=== PATIENT | female | born 1975 | race Caucasian/White ===

== ENCOUNTER 2019-11-26 05:28 | Inpatient (IN) | payer BC ==
[2019-11-26] MEDS ORDERED: Acetaminophen 500 MG Tab PO ONE (05:30)
[2019-11-26] MEDS ORDERED: Scopolamine 1.5 MG Transdermal Patch TOP SCH (05:30)
[2019-11-26] MEDS ORDERED: Gabapentin 300 MG Cap PO ONE (05:30)
[2019-11-26] MEDS ORDERED: Celecoxib 200 MG Cap PO ONE (05:30)
[2019-11-26] MEDS ORDERED: Dextrose 5%-Lactated Ringers 1,000 ML IV SCH (06:00)
[2019-11-26] MEDS ORDERED: cefOXitin 2 GM Vial ONE (06:34)
[2019-11-26] MEDS ORDERED: cefOXitin 2 GM in Sodium Chloride 0.9% 50 ML IV ONE (07:00)
[2019-11-26] MEDS ORDERED: Rocuronium 50 MG/5 ML Vial ONE (07:07)
[2019-11-26] MEDS ORDERED: Neostigmine Methylsulfate 1 MG/ML 5 ML Syringe ONE (07:07)
[2019-11-26] MEDS ORDERED: Glycopyrrolate 0.2 MG/ML 5 ML MDV ONE (07:07)
[2019-11-26] MEDS ORDERED: Ondansetron 4 MG/2 ML SDV ONE (07:07)
[2019-11-26] MEDS ORDERED: Succinylcholine 200 MG/10 ML MDV ONE (07:07)
[2019-11-26] MEDS ORDERED: Propofol 200 MG/20 ML SDV ONE (07:07)
[2019-11-26] MEDS ORDERED: fentaNYL 250 MCG/5 ML SDV ONE ×2 (07:07→08:16)
[2019-11-26] MEDS ORDERED: Dexamethasone 4 MG/ML SDV ONE (07:07)
[2019-11-26] MEDS ORDERED: Ketamine 500 MG/5 ML MDV IV SCH (07:30)
[2019-11-26] MEDS ORDERED: Magnesium Sulfate 3.8 GM in Sodium Chloride 0.9% 100 ML IV SCH (07:30)
[2019-11-26] MEDS ORDERED: Ketamine 50 MG in Sodium Chloride 0.9% 49.5 ML IV SCH (07:30)
[2019-11-26] MEDS ORDERED: Lactated Ringers 1,000 ML ONE (08:13)
[2019-11-26] MEDS ORDERED: hydrOXYzine HCL 100 MG/2 ML SDV IM ONE (09:08)
[2019-11-26] MEDS ORDERED: Labetalol 20 MG/4 ML Syringe IV ONE (09:15)
[2019-11-26] MEDS ORDERED: Cyclobenzaprine 10 MG Tab PO PRN (10:18)
[2019-11-26] MEDS ORDERED: Acetaminophen 500 MG Tab PO PRN (10:18)
[2019-11-26] MEDS ORDERED: diphenhydrAMINE 50 MG/ML SDV IVPUSH PRN (10:18)
[2019-11-26] MEDS ORDERED: HYDROmorphone 0.5 MG/0.5 ML Syringe IVPUSH PRN (10:18)
[2019-11-26] MEDS ORDERED: Metoclopramide 10 MG/2 ML SDV IVPUSH PRN (10:18)
[2019-11-26] MEDS ORDERED: Labetalol 20 MG/4 ML Syringe IVPUSH PRN (10:18)
[2019-11-26] MEDS ORDERED: Calcium Gluconate 10% 1 GM/10 ML SDV IVPUSH PRN (10:18)
[2019-11-26] MEDS ORDERED: hydrOXYzine HCL 100 MG/2 ML SDV IM PRN (10:18)
[2019-11-26] MEDS ORDERED: oxyCODONE 5 MG Tab PO PRN (10:18)
[2019-11-26] MEDS: HYDROmorphone 1 MG/ML Syringe IV PRN ×2 (11:08→20:17)
[2019-11-26] MEDS: Ondansetron 4 MG/2 ML SDV IVPUSH PRN ×2 (13:06→20:31)
[2019-11-26] MEDS: Gabapentin 250 MG/5 ML Solution ML 470 ML Bottle PO SCH ×2 (13:08→20:19)
[2019-11-26] MEDS: Acetaminophen 500 MG Tab PO SCH ×2 (13:08→22:40)
[2019-11-26] MEDS: cefOXitin 2 GM in Sodium Chloride 0.9% 50 ML IV SCH ×2 (13:08→20:20)
[2019-11-26] MEDS: Levothyroxine 100 MCG Tab PO SCH (13:15)
[2019-11-26] MEDS: valACYclovir 1,000 MG Tab PO SCH (13:31)
[2019-11-26] MEDS ORDERED: Pantoprazole 40 MG Vial IVPUSH SCH (14:00)
[2019-11-26] MEDS ORDERED: FLUoxetine 20 MG Cap PO SCH ×2 (14:00→21:00)
[2019-11-26] MEDS: MVI, Adult with Vitamin K 10 ML, Thiamine 200 MG, Chromium/Copper/Mang/Selen/Zn 1 ML in... IV SCH ×8 (14:14→16:02)
[2019-11-26] MEDS: Heparin Sodium 5,000 Units/ML Vial SUBCUT SCH (16:03)
[2019-11-26] MEDS ORDERED: FLUoxetine 10 MG Cap PO ONE (21:23)
[2019-11-26] MEDS: Dextrose 5%-Lactated Ringers 1,000 ML IV SCH (22:41)
[2019-11-26] MEDS: Melatonin 3 MG Tab PO PRN (22:41)
[2019-11-27] MEDS: cefOXitin 2 GM in Sodium Chloride 0.9% 50 ML IV SCH (02:11)
[2019-11-27] MEDS: Heparin Sodium 5,000 Units/ML Vial SUBCUT SCH ×2 (03:07→16:47)
[2019-11-27] MEDS ORDERED: Iopamidol 612 MG/ML 50 ML SDV PO ONE (04:27)
[2019-11-27] MEDS: Dextrose 5%-Lactated Ringers 1,000 ML IV SCH (04:50)
--- NOTE | 2019-11-27 05:11 | CRLCR ---
Indication: Post bariatric surgery Technique: Two views of the abdomen performed following the administration of oral contrast Comparison: None available Findings/Impression : Contrast opacifies the distal esophagus and gastric pouch, and traverses the gastrojejunostomy to opacify left abdominal jejunal segments. No gross extravasation seen. A left upper quadrant surgical drain in place. Unremarkable osseous structures. Dictated by Boaz Camargo MD @ 11/27/2019 5:09:18 AM Dictated by: Boaz Camargo MD @ 11/27/2019 05:09:24 (Electronically Signed)
[2019-11-27] MEDS ORDERED: Dextrose 5%-Lactated Ringers 1,000 ML IV SCH (08:15)
[2019-11-27] MEDS: Acetaminophen 500 MG Tab PO SCH ×3 (08:53→21:56)
[2019-11-27] MEDS: HYDROmorphone 2 MG Tab PO PRN ×3 (08:53→22:00)
[2019-11-27] MEDS: Levothyroxine 100 MCG Tab PO SCH (08:54)
[2019-11-27] MEDS: Celecoxib 200 MG Cap PO SCH ×2 (08:54→20:33)
[2019-11-27] MEDS: valACYclovir 1,000 MG Tab PO SCH (08:54)
[2019-11-27] MEDS: Gabapentin 250 MG/5 ML Solution ML 470 ML Bottle PO SCH ×3 (08:54→20:37)
[2019-11-27] MEDS: SCOPOLAMINE PATCH CHECK TOP SCH (11:41)
[2019-11-27] MEDS ORDERED: MVI, Adult with Vitamin K 10 ML, Thiamine 200 MG, Chromium/Copper/Mang/Selen/Zn 1 ML in... IV SCH ×4 (16:00)
[2019-11-27] MEDS ORDERED: Pantoprazole 40 MG Tab.CR PO SCH (17:00)
[2019-11-27] MEDS ORDERED: FLUoxetine 20 MG Cap PO SCH (21:00)
[2019-11-27] MEDS: Melatonin 3 MG Tab PO PRN (22:00)
[2019-11-28] MEDS: Heparin Sodium 5,000 Units/ML Vial SUBCUT SCH (05:17)
[2019-11-28] MEDS: Acetaminophen 500 MG Tab PO SCH (05:51)
[2019-11-28] MEDS: Celecoxib 200 MG Cap PO SCH (08:53)
[2019-11-28] MEDS: Gabapentin 250 MG/5 ML Solution ML 470 ML Bottle PO SCH (08:53)
[2019-11-28] MEDS: Levothyroxine 100 MCG Tab PO SCH (08:53)
[2019-11-28] MEDS ORDERED: Cyanocobalamin (Vitamin B12) 1,000 MCG/ML SDV IM ONE (09:00)
[2019-11-28] MEDS: SCOPOLAMINE PATCH CHECK TOP SCH (11:57)
[2019-11-28] MEDS: valACYclovir 1,000 MG Tab PO SCH (11:57)
--- NOTE | 2019-12-01 12:46 | DISCH ---
FINAL DIAGNOSES: 1. Morbid obesity. 2. Marked hepatomegaly. 3. Paraesophageal diaphragmatic hernia associated with mediastinal lipoma. 4. Small peritoneal nodule on the surface of the gastric antrum. SECONDARY DIAGNOSES: 1. History of irritable bowel syndrome. 2. Treated hypothyroidism. 3. History of anxiety and depression. 4. History of asthma. OPERATIVE PROCEDURES: Done on 11/26/2019, diagnostic laparoscopy with: 1. Laparoscopic sleeve gastrectomy. 2. Mick-Cut needle liver biopsy. 3. Repair of paraesophageal diaphragmatic hernia. 4. Excision of mediastinal lipoma. 5. Excision of peritoneal nodule over gastric antrum. SUMMARY: This is a 43-year-old female presenting with longstanding morbid obesity and increasingly significant comorbidities. After preoperative evaluation and discussion, she wished to proceed with a laparoscopic sleeve gastrectomy. This was completed along with additional procedures on 11/26/2019. Postoperatively, the patient had no significant problems, presently tolerating a combination of Tylenol, Celebrex, and Dilaudid for pain and will be discharged home with Dilaudid 2 mg p.o. q.4 hours p.r.n. pain #30. Otherwise, she will continue her present home medications, other than holding the vitamins and other supplements until after the first appointment. She will be sent home with 2 doses of milk of magnesia for bowel stimulation and instructed to stay on a step-2 diet until the first month postoperatively is completed, i.e. until 12/27/2019. She will be scheduled to follow up with Joelle Summers at [facility] on 12/07/2019.
--- NOTE | 2019-12-01 15:14 | PN ---
DATE OF SERVICE: 11/27/2019 The patient has been afebrile with stable vital signs, and no major problems were noted overnight. Status post sleeve gastrectomy yesterday. The patient's upper GI looked good. She had a little bit of nausea immediately postop, but that has been cleared, and pain control appears to be fairly well. We will switch her over to exclusively oral pain medicine today, go up to step-3 diet, back down on the IV rate, maximize activity, and work with pulmonary toilet. She may be ready for discharge home tomorrow. Quinn Anna MD /[id number]
--- NOTE | 2019-12-01 20:12 | OR ---
DATE OF PROCEDURE: 11/26/2019 SURGEON: Quinn Anna MD PREOPERATIVE DIAGNOSIS: Morbid obesity. POSTOPERATIVE DIAGNOSES: 1. Morbid obesity. 2. Marked hepatomegaly. 3. Paraesophageal diaphragmatic hernia. 4. Mediastinal lipoma. 5. Small peritoneal nodule over surface of gastric antrum. OPERATIVE PROCEDURES: Diagnostic laparoscopy with, 1. Laparoscopic sleeve gastrectomy (13816). 2. Mick-Cut needle liver biopsy (53661). 3. Repair of paraesophageal diaphragmatic hernia (58067). 4. Excision of mediastinal lipoma (55559). 5. Excision of peritoneal nodule on surface of gastric antrum (85966). ANESTHESIA: General. CAFE HELPER: Joelle Summers PA-C INDICATIONS FOR PROCEDURE: This is a 43-year-old female presenting with longstanding morbid obesity, increasingly significant comorbidities. After preoperative evaluation and discussion, she wished to proceed with a sleeve gastrectomy. Potential risks of the procedure including bleeding, infection, leaks from GI staple lines, variability in terms of weight loss and possible weight regain as well as the possibly of cardiopulmonary, septic, or hemorrhagic complications leading to were discussed, and the patient wishes to proceed. DETAILS OF PROCEDURE: The patient was taken to the operating room. After general endotracheal anesthesia was induced, she was placed in a lithotomy position, and the abdomen was prepped and draped. 15 cm inferior and 5 cm left of the xiphoid process, a transverse incision was made and peritoneal cavity entered under direct vision with an Optiview trocar and inflated 15 mmHg pressure with CO2. Laparoscope was then reinserted and no underlying trocar insertion site injuries were seen. Following this, bilateral transversus abdominis plane blocks were placed and 5 additional trocars were placed across the upper and mid abdomen. The patient was noted to have marked hepatomegaly with liver volume being roughly 2 to 3 times normal and liver grossly fatty infiltrated. Given this, Mick-Cut needle biopsy was obtained from left lobe of liver. Minimal bleeding from the biopsy site was controlled with electrocautery. The liver was then retracted anteriorly. The patient was noted to have a moderate-sized paraesophageal diaphragmatic hernia. This contained some perigastric fat as well as gastric fundus and a small tongue of omentum prolapsing at a plane anterior to the course of the esophagus. The hernia was reduced. The peritoneum overlying was incised and reflected downward. During the course of the dissection, a mediastinal lipoma was encountered, and this was excised to facilitate more adequate crural repair, which was then accomplished anteriorly with some 0 Ethibond sutures reinforced with PTFE pledgets. During further examination, the patient was noted to have a tiny, somewhat whitish or almost clear peritoneal nodule, measuring around 1 to 2 mm, located on the anterior aspect of the mid-gastric antrum. This was excised at this point and sent as a separate pathologic specimen. At this point, the omentum was divided away from the greater curvature of the stomach, beginning in the mid greater curvature and extending proximally up to and through the short gastric vessels including the highest and posterior short gastric vessels. The fundus was then dissected away from the left orlin until that area was well skeletonized. The omentum was then divided more distally down to a point 2 cm proximal to the pylorus. At this point, the initial staple line was mapped out across the antrum and then underneath the incisura angularis with electrocautery with care taken to avoid over tightening of the incisura angularis area of the stomach. The first 2 firings were done with JOANNE black loads. Following this, then a 32-Omani suction tube was placed orally per Anesthesia along the lesser curvature of the stomach and then placed on suction. Remainder of the sleeve gastrectomy was then accomplished against the tube using mixture of reinforced black and purple loads. Upon completion of the resection, the staple line was inspected and found to be intact. At this point, omentum and fibrin sealant were placed across the area of esophagogastric junction and then some more fibrin sealant placed across the remainder of the gastric staple line as well. Leak test was accomplished with injection of air into the remaining stomach, while the duodenum was compressed. Good distention was seen with no air bubbles or other signs of leaking or bleeding. At this point, the stomach specimen was retrieved through left lateral trocar site. Single Bassam-Rodriguez drain was then placed through the left lateral trocar site as well and placed up against the esophagogastric junction and from there into the splenic fossa. The trocars were then sequentially removed. Peritoneal cavity was deflated. Incisions were closed with 4-0 Vicryl skin stitch. Through the fascial site, it had no muscle present, and these were closed at the fascia level with 0 Vicryl stitch as well. The patient was taken to the recovery room in satisfactory condition. Physician veterinary assistant, Joelle Summers, played an essential role in assisting in this case; helping to position the patient, retract structures as needed, as well as suturing and cutting sutures when indicated. Her presence improved patient safety and decreased the operative time. Quinn Anna MD /[id number]
== END 2019-11-28 12:10 | disposition home or self-care (01) | DRG 403 ==
LOC: JP.SDS 05:28 → JP.MS 05:28 → EDSTATUS 07:45 → JP.MS 09:10
PROVIDERS: ADMIT Surgery; ATTEND Surgery
PROC: 0DB64Z3 Excision of Stomach, Percutaneous Endoscopic Approach, Vertical (ICD-10-PCS; principal; 2019-11-26)
PROC: 0FB24ZX Excision of Left Lobe Liver, Percutaneous Endoscopic Approach, Diagnostic (ICD-10-PCS; 2019-11-26)
PROC: 0BQT4ZZ Repair Diaphragm, Percutaneous Endoscopic Approach (ICD-10-PCS; 2019-11-26)
PROC: 0JB63ZZ Excision of Chest Subcutaneous Tissue and Fascia, Percutaneous Approach (ICD-10-PCS; 2019-11-26)
PROC: 0DBW4ZZ Excision of Peritoneum, Percutaneous Endoscopic Approach (ICD-10-PCS; 2019-11-26)
DX: E66.01 Morbid (severe) obesity due to excess calories (principal); J45.909 Unspecified asthma, uncomplicated; R16.0 Hepatomegaly, not elsewhere classified; K44.9 Diaphragmatic hernia without obstruction or gangrene; D17.1 Benign lipomatous neoplasm of skin and subcutaneous tissue of trunk; E03.9 Hypothyroidism, unspecified; F41.9 Anxiety disorder, unspecified; F32.9 Major depressive disorder, single episode, unspecified; R22.2 Localized swelling, mass and lump, trunk; Z79.890 Hormone replacement therapy; Z79.899 Other long term (current) drug therapy; Z90.710 Acquired absence of both cervix and uterus; Z79.82 Long term (current) use of aspirin; Z88.8 Allergy status to other drugs, medicaments and biological substances; Z87.891 Personal history of nicotine dependence; Z68.37 Body mass index [BMI] 37.0-37.9, adult
CPT/HCPCS: 36415; 74240; 80053; 82728; 83735; 84100; 84443; 85027; 86850; 86900; 86901; 88304; 88305; 88307; 88313; 88342; 93005; A9270-GY; C9113; J0171; J0330; J0694; J1100; J1170; J1644; J2405; J2704; J2710; J2795; J3010; J3410; J3411; J3420; J3475; J3490; J7050; J7120; J7121; Q9967